=== PATIENT | female | born 1965 | race Caucasian/White ===

== ENCOUNTER 2018-05-10 17:48 | Emergency (ER) | payer OTHER ==
[2018-05-10] MEDS: DEXAMETHASONE 10 MG/ML 1 ML INJ IM (22:01)
[2018-05-10] MEDS: METHYLPREDNISOLONE ACET 40 MG/ML 1 ML IM (22:01)
[2018-05-10] MEDS: KETOROLAC 60 MG INJ IM (22:01)
== END 2018-05-10 22:47 | disposition home or self-care (01) ==
LOC: FTE 17:48
DX: J30.9 Allergic rhinitis, unspecified (principal); B34.9 Viral infection, unspecified
CPT/HCPCS: 96372; 99284-25